=== PATIENT | female | born 1980 | race Caucasian/White ===

== ENCOUNTER → 2016-09-06 | Outpatient (CLI) | payer OTHER ==
[~2016-09-06] MED LIST: IBUP-232 PO; IBUP-238 PO; MACR100C37 PO; PHEN-426 PO; PREN29TA PO; REST30CA PO; TIZA2TAB PO
[2016-09-06 15:14] LABS: AUTOMATED NEUTROPHIL # 4.7 TH/MM3 (1.8-7.7); BASOPHIL % 0.5 % (0.0-2.0); EOSINOPHIL # 0.1 TH/MM3 (0-0.4); EOSINOPHIL % 1.5 % (0.0-4.0); HEMATOCRIT 38.4 % (35.0-46.0); HEMO FLAGS DIFF FINAL; LYMPH % 30.3 % (9.0-44.0); LYMPHOCYTE # 2.3 TH/MM3 (1.0-4.8); MEAN CELL VOLUME 88.1 FL (80.0-100.0); MEAN CORPUSCULAR HEMOGLOBIN 30.4 PG (27.0-34.0); MEAN CORPUSCULAR HGB CONC 34.5 % (32.0-36.0); MONO % 5.6 % (0.0-8.0); NEUT % 62.1 % (16.0-70.0); PLATELET COUNT 295 TH/MM3 (150-450); RED BLOOD COUNT 4.36 MIL/MM3 (4.00-5.30); RED CELL DISTRIBUTION WIDTH 13.1 % (11.6-17.2); WHITE BLOOD COUNT 7.6 TH/MM3 (4.0-11.0)
[2016-09-06 15:15] LABS: BLOOD, URINE NEG (NEG); COMMENT (UR) CULT NOT INDICATED; CULTURE IF INDICATED CULT NOT INDICATED; GLUCOSE,URINE NEG (NEG); KETONE, URINE NEG (NEG); NITRITE,URINE NEG (NEG); SQUAMOUS EPITHELIAL CELL URINE 1 /hpf (0-5); URINE COLOR LIGHT-YELLOW (YELLW/STRAW)
[2016-09-06 15:42] LABS: BETA HCG QUANT LESS THAN 1 MIU/ML (0-5)
--- NOTE | 2016-09-07 12:02 | EKG ---
Date Performed: 09/06/2016 Time Performed: 13:29:45 PTAGE: 36 years EKG: Sinus rhythm Since previous tracing, no significant change noted NORMAL ECG PREVIOUS TRACING : 11/26/1994 17.06 DOCTOR: Wilfredo Morales Interpretating Date/Time 09/07/2016 12:01:47
== END ==
LOC: CPRE 13:08
PROVIDERS: ATTEND Obstetrics & Gynecology
DX: Z01.812 Encounter for preprocedural laboratory examination (principal); Z01.810 Encounter for preprocedural cardiovascular examination; Z30.2 Encounter for sterilization
CPT/HCPCS: 36415; 81001; 84702; 85025; 93005

== ENCOUNTER → 2016-09-10 | Day surgery (SDC) | payer OTHER ==
--- NOTE | 2016-09-09 10:19 | MH ---
cc: KENDALL HANDLEY DATE OF ADMISSION: 09/10/2016 ADMISSION DIAGNOSIS Multiparity, undesired fertility, desires sterilization. HISTORY OF PRESENT ILLNESS Patient is a 36-year-old, white female, para 2-0-0-2, is now admitted for elective sterilization. PAST MEDICAL HISTORY PREVIOUS SURGERIES She had for failure to progress on 08/01/16. Additional surgery: None. MEDICATIONS Vitamins. ALLERGIES DOXYCYCLINE, FLEXERIL AND BENADRYL. ADDITIONAL MEDICAL ILLNESS History of ADHD. SOCIAL HISTORY She is . She works at [employer]. Alcohol, tobacco and drugs are none. FAMILY HISTORY Noncontributory. PHYSICAL EXAMINATION GENERAL: This is a well-nourished, well-developed white female. VITAL SIGNS: Stable. HEENT: Exam is normal. CHEST: Chest is clear. HEART: Regular rate. ABDOMEN: Benign. PELVIC: Normal external genitalia and BUS. Vagina is normal. Cervix normal. Uterus is normal size, shape anterior. No adnexal masses. ASSESSMENT As above. She is now admitted for laparoscopic bilateral partial salpingectomy for permanent sterilization. She is aware the operation is permanent, non-reversible, small risk of failure and would like to proceed. MD NATHANIEL Delgado/[place] /9:52 AM /10:08 AM
[~2016-09-10] VITALS: Ht 160 cm; Wt 80.5 kg
[~2016-09-10] MED LIST changes: +*morphine SULFATE 8 MG/ML PERIprocedure ONLY ONE; +ACETAMINOPHEN 1000 MG/100 ML VIAL IV PRN; +BUPIVACAINE HCL PF 0.5% 30 ML VIAL ONE; +CHLORHEXIDINE GLUCONATE 2 % 1 PACK (2 CLOTHS) TOPICAL PRN; +DEXAMETHASONE SOD PHOS 4 MG/ML VIAL ONE; +DO NOT ADM ANY ANTICOAGULANT DRUGS PRN; +FAMOTIDINE 20 MG/2 ML VIAL ONE; +HYDROmorphone HCL PF 2 MG/ML VIAL ONE; -IBUP-232 PO; -IBUP-238 PO; +INSULIN HUMAN REGULAR 1,000 UNITS/10 ML VIAL SQ PRN; +KETOROLAC TROMETHAMINE 60 MG/2 ML (IM) VIAL IM ONE; +LACTATED RINGER'S 1000 ML IV PRN; -MACR100C37 PO; +METOCLOPRAMIDE HCL 10 MG/2 ML VIAL IV PRN; +METOPROLOL TARTRATE 25 MG TAB PO PRN; +MIDAZOLAM HCL 2 MG/2 ML VIAL ONE; +NEOSTIGMINE 3 MG/3 ML SYR IV ONE; +ONDANSETRON HCL 4 MG/2 ML VIAL IV PUSH ONE; -PHEN-426 PO; +POVIDONE IODINE 5% (ANTISEPSIS KIT) 4 APPLICATIONS EACH NARE PRN; +PROPOFOL 200 MG/20 ML AMP IV ONE; -REST30CA PO; +SODIUM CHLORID 0.9% 500 ML IV PRN; -TIZA2TAB PO; +ceFAZolin 1,000 MG/NS 100 ML IV SCH; +fentaNYL CITRATE 250 MCG/5 ML AMP ONE; +oxyCODONE/ACETAMINOPHEN 5 MG/325 MG TAB PO PRN
[2016-09-10 06:23] VITALS: BP 112/69; PULSE 80; RESP 24; TEMP 97.7; O2SAT 97
[2016-09-10 10:05] VITALS: BP 126/76; PULSE 69; RESP 16; TEMP 97.2; O2SAT 100
--- NOTE | 2016-09-11 23:31 | MP ---
cc: KENDALL HANDLEY DATE OF SURGERY 09/10/16 PREOPERATIVE DIAGNOSIS Multiparity, desires sterilization. POSTOPERATIVE DIAGNOSIS Multiparity, desires sterilization. PROCEDURE Laparoscopic bilateral partial salpingectomy. ANESTHESIA General ET SURGEON Arina Handley MD GRAPPLE YARDER OPERATOR Melly Thomas. ESTIMATED BLOOD LOSS Less than 5 mL FLUIDS about 500 mL of crystalloid. OBJECTIVE FINDINGS Following induction of adequate general endotracheal anesthesia, the patient was prepped and draped supine on the operating table. Richter catheter placed to drain the bladder. The abdomen was opened through a 0.5 cm umbilical incision. A five port was placed. Scope inserted under direct vision a 12 port was placed left lower quadrant and a five in the right. Pelvic contents revealed normal uterus, tubes, ovaries, normal cul-de-sacs, normal liver edge. Working first on the left harmonic scalpel was used to take the left mesosalpinx of the fimbria all the way to the isthmus portion of the tube. The tubal segment was extracted through the larger port. The same on the right. Inspection revealed no bleeding or injuries to adjacent tissue. Low pressure was done and there was no bleeding. The large port was now removed and sutured with a fascia closing device using 2-0 Vicryl. The subcu injected with 5 mL of Marcaine, 0.5% and closed with running subcuticular 3-0 Vicryl. Inspection of the ports revealed good closure. There was no bleeding. Scope was now removed. Ports removed. Each site was injected with 5 mL of Marcaine 0.5% and closed with 3-0 Vicryl subcuticular. Dermabond applied. All counts correct and the patient was awakened and taken to recovery room in good condition. MD NATHANIEL Delgado/ /8:12 AM /11:25 PM [place]
== END | disposition home or self-care (01) ==
LOC: HSDC 05:28
PROVIDERS: ATTEND Obstetrics & Gynecology
DX: Z30.2 Encounter for sterilization (principal)
CPT/HCPCS: 00840; 58661; 88302; J0131; J0690; J1100; J1885; J2250; J2270; J2405; J2710; J3010; J7120; J1170